=== PATIENT | female | born 1960 | race Caucasian/White ===

== ENCOUNTER 2025-07-07 18:39 | Emergency (ER) | payer BC, OTHER ==
[~2025-07-07] VITALS: Ht 162.6 cm; Wt 70.5 kg
[2025-07-07 19:23] LABS: Hemoglobin 13.3 g/dL (12.2-16.2); Mean Corpuscular Volume 85.0 fL (80.0-100.0)
[2025-07-07 19:25] LABS: Hematocrit 39.0 % (36.0-46.0); Mean Corpuscular Hemoglobin 29.0 pg (28.0-32.0); Nucleated Red Blood Cells % 0.1 %
--- NOTE | 2025-07-07 19:28 | DVH ---
CHEST RADIOGRAPH Indication: gen weak Technique: Single frontal view of the chest was obtained Comparison: None FINDINGS: Lines and Tubes: None Lungs: No focal consolidation. Pleura: No effusion. No pneumothorax. Cardiomediastinal contours: Unremarkable Bones: No acute osseous abnormality. IMPRESSION: 1. No acute cardiopulmonary disease.
[2025-07-07 19:31] LABS: Chloride 99 mmol/L (98-107); Potassium 4.0 mmol/L (3.5-5.1); Sodium 137 mmol/L (136-145)
[2025-07-07 19:32] LABS: Anion Gap 9 (5-15); Calcium 8.9 mg/dL (8.7-10.4); Carbon Dioxide 29 mmol/L (20-31)
[2025-07-07 19:37] LABS: BUN/Creatinine Ratio 21.3 (10.0-20.0); Blood Urea Nitrogen 10 mg/dL (9-23)
[2025-07-07 19:41] LABS: Glucose 110 mg/dL (74-106)
--- NOTE | 2025-07-07 19:52 | ED.PDOC ---
History of Present Illness HPI Comments 64-year-old female came to ER for generalized weakness. Patient tested positive for COVID-19 last June 30, 2025, and since then patient has been experiencing generalized weakness, headaches, dizziness, nausea, diarrhea, cough. Patient states this is her 3rd time to have COVID-19, but she never had symptoms this bad. REVIEW OF SYSTEMS: No fever, no chills, or fatigue HEENT: No sore throat, no earache, no congestion, no neck pain. Cardiac: No chest pain. No palpitations. Lungs: No shortness of breath, no cough. GI: (+) nausea, no vomiting, (+) diarrhea, no constipation, no abdominal pain : No dysuria, frequency, or urgency. No hematuria. Musculoskeletal: No joint pain , no joint swelling, no extremity edema. Skin: No rash, no itching. Neuro: No headache, (+) dizziness, (+) weakness PHYSICAL EXAM: General: Awake, alert and oriented. No acute distress. Skin: Skin in warm, dry and intact without rashes or lesions. HEENT: The head is normocephalic and atraumatic. Conjunctivae are clear without exudates or hemorrhage. Sclera is non-icteric. Neck: Normal range of motion. No JVD. Cardiac: Regular rate Respiratory: No signs of respiratory distress. No Stridor. Extremities: Upper and lower extremities are atraumatic in appearance without deformity. Neurological: The patient is awake, alert and oriented to person, place, and time with normal speech. Speech is clear. There is no facial asymmetry. Psychiatric: Appropriate mood and affect. Good judgement and insight. 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 Was a procedure done?: No EKG EKG : Comments RATE 92, RIGHT BUNDLE-BRANCH BLOCK, NO STEMI, SINUS RHYTHM. Differential Dx Considerations may include: Differential diagnoses considered include but are not limited to sepsis, CVA, ACS, PE, stroke, ICH, adrenal insufficiency, viral syndrome, thyroid storm, myxedema coma , DKA, HHS, hypoglycemia, anemia, GI bleeding, renal failure, dehydration, hepatic failure, electrolyte imbalance, carbon monoxide poisoning, malignancy, UTI, other. X-Ray, Labs, Meds, VS Vital Signs Date Time Temp Pulse Resp B/P (MAP) Pulse Ox O2 Delivery O2 Flow Rate FiO2 07/07/25 23:36 Room Air 07/07/25 23:25 98.1 90 18 125/75 (92) 99 98.1 07/07/25 21:41 92 07/07/25 18:41 98.4 98 22 138/73 98 98.4 Lab Test 07/07/25 21:35 07/07/25 19:08 Range/Units Urine Color Light-yellow Yellow Urine Clarity Clear Clear Urine pH 5.5 5.0-9.0 Urine Specific [place] 1.013 1.001-1.035 Urine Protein Negative Negative Urine Ketones Negative Negative Urine Blood Trace H Negative /uL Urine Nitrite Negative Negative Urine Bilirubin Negative Negative Urine Urobilinogen Normal Negative mg/dL Urine Leukocyte Esterase 2+ Negative /uL Urine Glucose Normal Normal mg/dL White Blood Count 9.7 4.4-10.8 10^3/uL Red Blood Count 4.59 4.0-5.20 10^6/uL Hemoglobin 13.3 12.2-16.2 g/dL Hematocrit 39.0 36.0-46.0 % Mean Corpuscular Volume 85.0 80.0-100.0 fL Mean Corpuscular Hemoglobin 29.0 28.0-32.0 pg Mean Corpuscular Hemoglobin Concent 34.1 32.0-36.0 g/dL Red Cell Distribution Width 13.5 11.8-14.3 % Platelet Count 463 H 140-450 10^3/uL Mean Platelet Volume 7.2 6.9-10.8 fL Neutrophils (%) (Auto) 64.1 37.0-80.0 % Lymphocytes (%) (Auto) 24.1 10.0-50.0 % Monocytes (%) (Auto) 10.7 0.0-12.0 % Eosinophils (%) (Auto) 0.5 0.0-7.0 % Basophils (%) (Auto) 0.6 0.0-2.0 % Neutrophils # (Auto) 6.2 1.6-8.6 10 ^3/uL Lymphocytes # (Auto) 2.3 0.4-5.4 10 ^3/uL Monocytes # (Auto) 1.0 0-1.3 10 ^3/uL Eosinophils # (Auto) 0 0-0.8 10 ^3/uL Basophils # (Auto) 0.1 0-0.2 10 ^3/uL Nucleated Red Blood Cells 0.1 % Sodium Level 137 136-145 mmol/L Potassium Level 4.0 3.5-5.1 mmol/L Chloride Level 99 98-107 mmol/L Carbon Dioxide Level 29 20-31 mmol/L Anion Gap 9 5-15 Blood Urea Nitrogen 10 9-23 mg/dL Creatinine 0.47 L 0.550-1.02 mg/dL Glomerular Filtration Rate Calc 105 >90 mL/min BUN/Creatinine Ratio 21.3 H 10.0-20.0 Serum Glucose 110 H 74-106 mg/dL Calcium Level 8.9 8.7-10.4 mg/dL Troponin I High Sensitivity < 3 L </=34 ng/L PATIENT: LUIS BLANCAS ACCT: [id number] UNIT: [id number] : 1960 LOC: ER ROOM / BED: / AGE / SEX: 64 / F ADM STATUS: REG ER SERVICE 52 ORDERING PHYSICIAN: SERVANDO TAMAYO MD PROCEDURE(s): CXR1 - CHEST XRAY 1 VIEW REASON: gen weak ORDER NUMBER(s): [id number], ACCESSION NUMBER(s): [id number] CHEST RADIOGRAPH Indication: gen weak Technique: Single frontal view of the chest was obtained Comparison: None FINDINGS: Lines and Tubes: None Lungs: No focal consolidation. Pleura: No effusion. No pneumothorax. Cardiomediastinal contours: Unremarkable Bones: No acute osseous abnormality. IMPRESSION: 1. No acute cardiopulmonary disease. ATED BY: SATURNINO SMITH Jr., DO DICTATED DATE/TIME: 07/07/251924 SIGNED BY: SATURNINO SMITH Jr., DO Time of 1ST Reevaluation: 19:48 Reevaluation 1ST: Unchanged Patient Education/Counseling: Need For Follow Up Family Education/Counseling: No Family Present SEPSIS Sepsis Screen Date sepsis recognized/suspect: Jul 07, 2025 Time Sepsis recognized/suspect: 1842 Recent Procedure: No On Antibiotic Therapy: No Respiratory Rate >20: Yes Heart Rate >90: Yes Temp<36 C (96.8 F) or >38.3 C: No SBP <90 or MAP <65 mmHG: No New Acute Mental Status Change: No Is the patient on CPAP, BIPAP,: No Physician Orders Chest Xray 1 View (07/07/25 18:53) Vital Signs Date Time Temp Pulse Resp B/P (MAP) Pulse Ox O2 Delivery O2 Flow Rate FiO2 07/07/25 23:36 Room Air 07/07/25 23:25 98.1 90 18 125/75 (92) 99 98.1 07/07/25 21:41 92 07/07/25 18:41 98.4 98 22 138/73 98 98.4 Laboratory Tests Test 07/07/25 19:08 White Blood Count 9.7 10^3/uL (4.4-10.8) Departure 1 Departure Time of Disposition: 22:30 Impression: Primary Impression: Viral syndrome Additional Impression: Generalized weakness Disposition: HOME / SELF CARE / HOMELESS Condition: Stable Additional Instructions: ED DISCHARGE INSTRUCTIONS INSTRUCTIONS: PLEASE READ ALL INSTRUCTIONS PROVIDED IN THIS PACKET CAREFULLY. ALTHOUGH YOU HAVE BEEN DISCHARGED FROM THE EMERGENCY DEPARTMENT, THIS DOES NOT MEAN THAT YOU HAVE A "CLEAN BILL OF HEALTH". NO DEFINITIVE DIAGNOSIS FOR YOUR SYMPTOMS HAS BEEN MADE TODAY. IT IS POSSIBLE THAT YOU ARE IN THE PROCESS OF DEVELOPING A SERIOUS ILLNESS. THIS IS WHY YOU MUST RETURN TO THE ED WITHOUT FAIL IF ANY NEW OR WORSENING SYMPTOMS (ESPECIALLY IF YOUR SYMPTOMS INCLUDE CHEST PAIN, TROUBLE BREATHING, ABDOMINAL PAIN, FEVER, HEADACHE, CONFUSION, TROUBLE SEEING, OR TROUBLE WALKING) IT IS ALSO VERY IMPORTANT THAT YOU SEE A PRIMARY CARE PROVIDER (PCP) WITHIN THE NEXT 1-3 DAYS TO FOLLOW UP. IF YOU ARE UNABLE TO GET AN APPOINTMENT, RETURN TO THE ED FOR RE-EVALUATION. Comments MDM: 64-year-old female with generalized weakness and ongoing COVID-19 infection. Patient is well-appearing, nontoxic. Vital signs stable. Diagnostic results reviewed and are not urgently actionable. Patient is felt stable for discharge home. Patient advised to follow up with primary care provider promptly and return to the emergency department with any new, worsening or concerning symptoms. - I reviewed the following notes from the pt's past medical encounters: N/A The following tests were ordered, and results were reviewed by me: (See diagnostic results section) The following test were independently interpreted by me: N/A Additional information was gathered from interviewing the following independent historians: N/A I reviewed and agreed with the following test results read by other providers: N/A I discussed treatments and results with patient Decision regarding hospitalization or escalation of hospital level of care: Risks and benefits of admission for further treatment of patient's condition was considered however due to patient's stable condition patient will be discharged to follow up closely or return to care for worsening of condition or inability to follow up. Critical Care Note Critical Care Time?: No Stability Stability form required: No Heart Score Heart Score: Heart Score Response (Comments) Value History N/A 0 EKG N/A 0 Age N/A 0 Risk Factors N/A 0 Troponin N/A 0 Total 0 I personally scribed for SERVANDO TAMAYO MD ([email or web address]) on 07/07/25 at 19:52. Electronically submitted by Anton Borges ([email or web address]). SERVANDO TAMAYO MD Jul 07, 2025 19:52
[2025-07-07 21:47] LABS: Urine Protein, UAD Negative (Negative)
--- NOTE | 2025-07-07 22:42 | ECG ---
[facility] Test Date: 2025-07-07 Test Time: 21:41:21 Pat Name: LUIS BLANCAS Department: ED Room: Gender: F [employer]: : 1960 Requested By: SERVANDO TAMAYO Order Number: [id number] Reading MD: Serjio Perrin Measurements Intervals [place] Rate: 92 P: 146 WI: 155 QRS: -49 QRSD: 135 T: 103 QT: 380 QTc: 471 Interpretive Statements Sinus or ectopic atrial rhythm Left atrial enlargement Right bundle branch block LVH with IVCD and secondary repol abnrm Electronically Signed On 07-09-2025 18:20:47 PDT by Srejio Perrin Please click the below link to view image of tracing.
[2025-07-07 23:25] VITALS: BP 125/75; PULSE 90; RESP 18; TEMP 98.1; O2SAT 99
== END 2025-07-07 23:35 | disposition home or self-care (01) ==
LOC: ER 18:46
DX: B34.9 Viral infection, unspecified (principal); R53.1 Weakness; Z79.899 Other long term (current) drug therapy; Z88.0 Allergy status to penicillin
CPT/HCPCS: 36415; 71045; 80048; 81003; 84484; 85025; 93005